=== PATIENT | male | born 1955 | race Caucasian/White ===

== ENCOUNTER → 2018-10-06 | Outpatient (CLI) | payer OTHER ==
--- NOTE | 2018-10-06 11:30 | REP ---
Chest two views HISTORY: Decreased lung sounds Comparison: 06/25/2015 The lungs are clear. The heart is normal in size. The pulmonary vasculature is normal in appearance. The bony structure is intact. IMPRESSION: No acute disease. Electronically Signed by Jay Barber MD 10/06/2018 11:21 A
== END ==
LOC: M LRY 10:56
PROVIDERS: ATTEND Nurse Practitioner Family
DX: R06.89 Other abnormalities of breathing (principal)
CPT/HCPCS: 71046; 94640; G0463

== ENCOUNTER → 2019-12-18 | Outpatient (CLI) | payer OTHER ==
--- NOTE | 2019-12-18 10:59 | REP ---
REASON FOR EXAM: Tobacco abuse. There are no priors for comparison. As per the protocol, only lung window images were sent to the read station for interpretation. There are no abnormal nodules, masses, or opacities. 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 There is no evidence of a mass or adenopathy. The imaged upper abdomen and imaged osseous structures are grossly unremarkable. IMPRESSION: 1. Lung RADS category 1. 2. Thoracic aorta as described above. Consider contrast enhanced chest CT. Electronically Signed by Antonino Ramos DO 12/18/2019 11:48 A
== END ==
LOC: M RAD 09:35
PROVIDERS: ATTEND Family Medicine
DX: F17.210 Nicotine dependence, cigarettes, uncomplicated (principal)

== ENCOUNTER → 2020-06-26 | Outpatient (CLI) | payer OTHER ==
[~2020-06-26] MED LIST: AMLO2.5T3; BUPR150T5; ECOT81TA5 PO; OMEP-218; PANT40TA29; PROAAER10; ROSU40TA4; SILD100T; SUCR1TAB56; TRIA75TA
== END ==
LOC: M LABSMTC 10:16
PROVIDERS: ATTEND Anesthesiology
DX: Z01.812 Encounter for preprocedural laboratory examination (principal); Z20.828 Contact with and (suspected) exposure to other viral communicable diseases
CPT/HCPCS: C9803; U0003

== ENCOUNTER 2020-07-01 09:21 | Day surgery (SDC) | payer OTHER ==
[~2020-07-01] VITALS: Ht 165.1 cm; Wt 95.3 kg
[~2020-07-01 09:21] MED LIST changes: +NS 1,000 ML IV ONE
[2020-07-01] MEDS ORDERED: LIDOCAINE 2% 100MG/5ML SDV (FOR ANES.) As Ordered ONE (11:44)
[2020-07-01] MEDS ORDERED: propofoL 200 MG/20 ML VIAL As Ordered ONE (11:44)
--- NOTE | 2020-07-01 12:00 | ROOR ---
Patient Name: Loyd Jimenez Procedure Date: 07/01/2020 10:54 AM Date of : 1955 Age: 65 Room: [facility] Gender: Male Note Status: Finalized Procedure: Upper GI endoscopy Indications: Abnormal UGI series Providers: Leoncio Davis MD Referring MD: KAT SPENCE MD Requesting Provider: Medicines: Monitored Anesthesia Care Complications: No immediate complications. Procedure: Pre-Anesthesia Assessment: - Prior to the procedure, a History and Physical was performed, and patient medications and allergies were reviewed. The patient is competent. The risks and benefits of the procedure and the sedation options and risks were discussed with the patient. All questions were answered and informed consent was obtained. Patient identification and proposed procedure were verified by the physician, the nurse and the anesthesiologist in the procedure room. Mental Status Examination: alert and oriented. Airway Examination: normal oropharyngeal airway and neck mobility. Respiratory Examination: clear to auscultation. CV Examination: normal. Prophylactic Antibiotics: The patient does not require prophylactic antibiotics. Prior Anticoagulants: The patient has taken no previous anticoagulant or antiplatelet agents. ASA Grade Assessment: II - A patient with mild systemic disease. After reviewing the risks and benefits, the patient was deemed in satisfactory condition to undergo the procedure. The anesthesia plan was to use monitored anesthesia care (MAC). Immediately prior to administration of medications, the patient was re-assessed for adequacy to receive sedatives. The heart rate, respiratory rate, oxygen saturations, blood pressure, adequacy of pulmonary ventilation, and response to care were monitored throughout the procedure. The physical status of the patient was re-assessed after the procedure. The Endoscope was introduced through the mouth, and advanced to the second part of duodenum. The upper GI endoscopy was accomplished without difficulty. The patient tolerated the procedure well. Findings: The Z-line was irregular and was found 40 cm from the incisors. The examined esophagus was normal. A 10 mm healed ulcer was found in the prepyloric region of the stomach. The scar tissue was healthy in appearance. Adjacent mucosal findings include congestion and nodularity. Biopsies were taken with a cold forceps for histology. Biopsies were taken with a cold forceps for Helicobacter pylori testing. Verification of patient identification for the specimen was done by the physician and nurse using the patient's name, date and medical record number. Estimated blood loss was minimal. A single 15 mm nodule with a localized distribution was found in the duodenal bulb. Biopsies were taken with a cold forceps for histology. Impression: - Z-line irregular, 40 cm from the incisors. - Normal esophagus. - Scar in the prepyloric region of the stomach. Biopsied. - Nodule found in the duodenum. Biopsied. Recommendation: - Patient has a contact number available for emergencies. The signs and symptoms of potential delayed complications were discussed with the patient. Return to normal activities tomorrow. Written discharge instructions were provided to the patient. - High fiber diet. - Continue present medications. - Await pathology results. - Perform an upper endoscopic ultrasound (UEUS) after studies are complete. - Return to GI clinic in [facility] (address [address], [address], [place], [facility]) in 4 -- 6 weeks. Please call GI clinic @ [phone] for apppointment date and time. - Return to primary care physician. Leoncio Davis MD Leoncio Davis MD 07/01/2020 12:00:06 PM Electronically signed by Leoncio Davis MD Number of Addenda: 0 Note Initiated On: 07/01/2020 10:54 AM Estimated Blood Loss: Estimated blood loss was minimal.
[2020-07-01 12:20] VITALS: BP 147/78
--- NOTE | 2020-07-01 12:35 | ROOR ---
Patient Name: Loyd Jimenez Procedure Date: 07/01/2020 10:55 AM Date of : 1955 Age: 65 Room: [facility] Gender: Male Note Status: Finalized Procedure: Colonoscopy Indications: Screening for colorectal malignant neoplasm Providers: Leoncio Davis MD Referring MD: KAT SPENCE MD Requesting Provider: Medicines: Monitored Anesthesia Care Complications: No immediate complications. Procedure: Pre-Anesthesia Assessment: - Prior to the procedure, a History and Physical was performed, and patient medications and allergies were reviewed. The patient is competent. The risks and benefits of the procedure and the sedation options and risks were discussed with the patient. All questions were answered and informed consent was obtained. Patient identification and proposed procedure were verified by the physician, the nurse and the anesthesiologist in the procedure room. Mental Status Examination: alert and oriented. Airway Examination: normal oropharyngeal airway and neck mobility. Respiratory Examination: clear to auscultation. CV Examination: normal. Prophylactic Antibiotics: The patient does not require prophylactic antibiotics. Prior Anticoagulants: The patient has taken no previous anticoagulant or antiplatelet agents. ASA Grade Assessment: II - A patient with mild systemic disease. After reviewing the risks and benefits, the patient was deemed in satisfactory condition to undergo the procedure. The anesthesia plan was to use monitored anesthesia care (MAC). Immediately prior to administration of medications, the patient was re-assessed for adequacy to receive sedatives. The heart rate, respiratory rate, oxygen saturations, blood pressure, adequacy of pulmonary ventilation, and response to care were monitored throughout the procedure. The physical status of the patient was re-assessed after the procedure. The Colonoscope was introduced through the anus and advanced to the terminal ileum, with identification of the appendiceal orifice and IC valve. The colonoscopy was performed without difficulty. The patient tolerated the procedure well. The quality of the bowel preparation was good. The terminal ileum, ileocecal valve, appendiceal orifice, and rectum were photographed. Scope insertion time was 3 minutes. Scope withdrawal time was 11 minutes. The total duration of the procedure was 14 minutes. Findings: The perianal and digital rectal examinations were normal. The terminal ileum appeared normal. Eight sessile polyps were found in the recto-sigmoid colon, transverse colon, ascending colon and cecum. The polyps were 4 to 10 mm in size. These polyps were removed with a cold snare. Resection and retrieval were complete. Verification of patient identification for the specimen was done by the physician and nurse using the patient's name, date and medical record number. Estimated blood loss was minimal. Non-bleeding external and internal hemorrhoids were found during retroflexion. The hemorrhoids were medium-sized. Impression: - The examined portion of the ileum was normal. - Eight 4 to 10 mm polyps at the recto-sigmoid colon, in the transverse colon, in the ascending colon and in the cecum, removed with a cold snare. Resected and retrieved. - Non-bleeding external and internal hemorrhoids. Recommendation: - Patient has a contact number available for emergencies. The signs and symptoms of potential delayed complications were discussed with the patient. Return to normal activities tomorrow. Written discharge instructions were provided to the patient. - High fiber diet. - Continue present medications. - Await pathology results. - Repeat colonoscopy in 3 years for surveillance based on pathology results. - Return to GI clinic in [facility] (address [address], [address], [place] [address]) in 4 -- 6 weeks. Please call GI clinic @ [phone] for apppointment date and time. - Return to primary care physician. Leoncio Davis MD Leoncio Davis MD 07/01/2020 12:34:29 PM Electronically signed by Leoncio Davis MD Number of Addenda: 0 Note Initiated On: 07/01/2020 10:55 AM Estimated Blood Loss: Estimated blood loss was minimal.
== END 2020-07-01 12:43 | disposition home or self-care (01) ==
LOC: M OPP 09:21
PROVIDERS: ATTEND Internal Medicine Gastroenterology
DX: Z12.11 Encounter for screening for malignant neoplasm of colon (principal); D12.7 Benign neoplasm of rectosigmoid junction; D12.3 Benign neoplasm of transverse colon; D12.2 Benign neoplasm of ascending colon; D12.0 Benign neoplasm of cecum; K64.8 Other hemorrhoids; R93.3 Abnormal findings on diagnostic imaging of other parts of digestive tract; K22.8 Other specified diseases of esophagus; K31.89 Other diseases of stomach and duodenum

== ENCOUNTER → 2020-12-23 | Outpatient (CLI) | payer MEDICARE, OTHER ==
[~2020-12-23] MED LIST changes: -NS 1,000 ML IV ONE
--- NOTE | 2020-12-23 14:27 | REP ---
INDICATION: NICOTINE DEPENDENCE, CIGARETTES, UNCOMPLICATED. COMPARISON: 12/18/2019. TECHNIQUE: Axial noncontrast images from the thoracic inlet to the upper abdomen using low-dose lung screening technique (LDCT). As per the protocol only lung window images were sent to the read station for interpretation. FINDINGS: No abnormal nodules, masses, or opacities have developed since the last exam. There are no gross pleural or pericardial effusions. 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 There is no gross change in the imaged upper abdomen or imaged osseous structures. IMPRESSION: 1. Lung rads category 1 exam. 2. Other findings as described above. <Electronically signed by Antonino Ramos > 12/23/20 1838
== END ==
LOC: M RAD 09:11
PROVIDERS: ATTEND Family Medicine
DX: Z12.2 Encounter for screening for malignant neoplasm of respiratory organs (principal); F17.210 Nicotine dependence, cigarettes, uncomplicated

== ENCOUNTER → 2021-12-24 | Outpatient (CLI) | payer OTHER, MEDICARE ==
[~2021-12-24] MED LIST changes: +BUPR-71; -BUPR150T5; +OMEP-173; -OMEP-218
== END ==
LOC: M RAD 14:26
PROVIDERS: ATTEND Family Medicine
DX: Z87.891 Personal history of nicotine dependence (principal)

== ENCOUNTER → 2023-01-07 | Outpatient (CLI) | payer OTHER, MEDICARE | LOC: M RAD 16:16 | PROVIDERS: ATTEND Family Medicine | DX: Z12.2 Encounter for screening for malignant neoplasm of respiratory organs (principal); F17.210 Nicotine dependence, cigarettes, uncomplicated ==

== ENCOUNTER → 2023-02-24 | Outpatient (CLI) | payer OTHER, MEDICARE | LOC: M RAD 08:24 | PROVIDERS: ATTEND Surgery Vascular Surgery | DX: I71.40 Abdominal aortic aneurysm, without rupture, unspecified (principal) ==